=== PATIENT | female | born 1965 | race Caucasian/White ===

== ENCOUNTER 2017-11-05 07:48 | Outpatient (CLI) | payer OTHER | END 2017-11-05 07:53 | disposition home or self-care (01) | LOC: SONOGRAMA 07:48 | DX: E04.2 Nontoxic multinodular goiter (principal) ==

== ENCOUNTER 2018-06-01 07:55 | Outpatient (CLI) | payer OTHER | END 2018-06-01 08:02 | disposition home or self-care (01) | LOC: SONOGRAMA 07:55 | DX: E04.1 Nontoxic single thyroid nodule (principal) ==